=== PATIENT | male | born 1970 | race Caucasian/White ===

== ENCOUNTER → 2020-09-18 | Outpatient (CLI) | payer OTHER ==
[~2020-09-18] MED LIST: ASPIRIN EC81 MG PO; CLARITIN10 MG PO; CYCLOBENZAPRINE10 MG PO; IBUPROFEN800 MG PO; MEDROL DOSEPAK 24 MG PO; NAPROSYN500 MG PO; NITROSTAT 0.40.4 MG SL; NORCO 5-325 TA1 EACH PO; PERCOCET 10-321 EACH PO; VITAMIN D1000 UNI1 PO; XARELTO10 MG PO
== END ==
LOC: KOH-I 09-13 11:15
DX: M54.5 Low back pain (principal); Z53.8 Procedure and treatment not carried out for other reasons

== ENCOUNTER 2021-08-16 23:19 | Emergency (ER) | payer BC ==
[2021-08-17 00:03] LABS: HEMOGLOBIN 14.7 gm/dl (14.0-17.5)
== END 2021-08-17 00:47 | disposition home or self-care (01) ==
LOC: ER1 23:19
PROVIDERS: Physician Assistant
DX: R04.0 Epistaxis (principal)
CPT/HCPCS: 85014; 85018; 85049; 85610; 85730; 99283

== ENCOUNTER → 2021-09-03 | Outpatient (CLI) | payer BC | LOC: KOH-I 16:00 | DX: J33.9 Nasal polyp, unspecified (principal); J32.4 Chronic pansinusitis | CPT/HCPCS: 70486 ==

== ENCOUNTER → 2021-10-02 | Outpatient (CLI) | payer BC ==
[~2021-10-02] MED LIST changes: +AMITRIPTYLINE H10 MG PO; +AUGMENTIN 875-1 EACH PO; +COZAAR50 MG PO; +LOPRESSOR 25 MG25 MG PO; +MUCUS DM PO; +NEURONTIN600 MG PO; +PREDNISONE20 MG PO; +PROTONIX40 MG PO; +PROVENTIL HFA6.7 GM INH; +SINGULAIR10 MG PO; +XYZAL5 MG PO
[2021-10-02 12:56] LABS: BUN/CREATININE RATIO 18 (0-10)
== END ==
LOC: OPSV2 11:00
PROVIDERS: Otolaryngology
DX: Z01.812 Encounter for preprocedural laboratory examination (principal)
CPT/HCPCS: 36415; 80048

== ENCOUNTER → 2022-02-26 | Day surgery (SDC) | payer BC ==
[~2022-02-26] MED LIST changes: +HYDROCODON-ACE1 EAC2 PO; +IBU600 MG PO; +LIPITOR TAB 2020 MG PO; +VITAMIN C500 M4 PO; +VITAMIN D325 MCG PO
== END | disposition home or self-care (01) ==
LOC: OR 05:51
DX: Z12.11 Encounter for screening for malignant neoplasm of colon (principal); K63.5 Polyp of colon; K62.1 Rectal polyp; K57.30 Diverticulosis of large intestine without perforation or abscess without bleeding; I10 Essential (primary) hypertension; J45.909 Unspecified asthma, uncomplicated; K21.9 Gastro-esophageal reflux disease without esophagitis; E66.01 Morbid (severe) obesity due to excess calories; E78.5 Hyperlipidemia, unspecified; M16.11 Unilateral primary osteoarthritis, right hip; Z68.42 Body mass index [BMI] 45.0-49.9, adult; Z88.2 Allergy status to sulfonamides; Z79.899 Other long term (current) drug therapy; Z72.89 Other problems related to lifestyle
CPT/HCPCS: J2704

== ENCOUNTER → 2022-04-15 | Outpatient (CLI) | payer BC ==
[~2022-04-15] MED LIST changes: +ALLERGY SHOTS INJ; +EPIPEN 2-P0.3 MG/0.3 INJ; +ROBAXIN 750 MG750 MG PO
[2022-04-15 14:21] LABS: BUN/CREATININE RATIO 16 (0-10)
== END ==
LOC: OPSV2 12:30
PROVIDERS: Anesthesiology
DX: Z01.812 Encounter for preprocedural laboratory examination (principal)
CPT/HCPCS: 36415; 80048

== ENCOUNTER → 2022-04-23 | Day surgery (SDC) | payer BC ==
[~2022-04-23] MED LIST changes: +COLACE100 MG PO
== END | disposition home or self-care (01) ==
LOC: OR 07:17
DX: K43.9 Ventral hernia without obstruction or gangrene (principal); E78.5 Hyperlipidemia, unspecified; K21.9 Gastro-esophageal reflux disease without esophagitis; I10 Essential (primary) hypertension; E66.01 Morbid (severe) obesity due to excess calories; Z68.42 Body mass index [BMI] 45.0-49.9, adult; Z88.2 Allergy status to sulfonamides; Z79.899 Other long term (current) drug therapy
CPT/HCPCS: C1713; C1781; C9089; J0690; J1100; J1170; J2001; J2250; J2370; J2405; J2704; J3010